=== PATIENT | female | born 1975 | race African-American/Black ===

== ENCOUNTER 2016-11-12 05:55 | Emergency (ER) | payer BC, OTHER ==
[~2016-11-12] VITALS: Ht 162.6 cm; Wt 91.4 kg
[~2016-11-12 05:55] MED LIST: EPIP0.3I IM; ERGO50000 PO; LISI-372 PO; VERA120T3 PO; VIST50CA PO
[2016-11-12 06:14] VITALS: BP 146/92; PULSE 82; RESP 18; TEMP 97.9; O2SAT 99
[2016-11-12 06:27] VITALS: BP 146/92; PULSE 82; RESP 18; TEMP 97.9; O2SAT 99
[2016-11-12] MEDS ORDERED: LISI20TA3 PO (06:37)
[2016-11-12] MEDS ORDERED: SODIUM CHLORIDE 0.9% FLUSH 10 ML FLUSH IVF PRN (06:45)
[2016-11-12 06:55] LABS: BLOOD, URINE LARGE (NEG); GLUCOSE,URINE NEG (NEG); KETONE, URINE NEG (NEG); METHOD OF COLLECTION CLEAN CATCH; NITRITE,URINE NEG (NEG); PH, URINE 5.5 (5.0-8.5); URINE COLOR YELLOW (YELLW/STRAW)
--- NOTE | 2016-11-12 06:59 | PD ---
HPI Chief Complaint: Abdominal Pain Time Seen by Provider: 06:43 Travel History International Travel<30 days: No Contact w/Intl Traveler<30days: No Traveled to known affect area: No History of Present Illness HPI The patient is a 41-year-old G3, P3, A0 female who complains of midline suprapubic abdominal pain and vaginal discharge for the past 2 days. She denies a malodorous discharge. She denies any fever but does have some nausea and vomiting. She states there is no possibility of she has had a tubal ligation. She is sexually active without protection. She is afraid that her partner may have given her an STD. She denies any dysuria, frequency or urgency. PFSH Past Medical History Hx Anticoagulant Therapy: No Anemia: Yes Blood Disorders: No Anxiety: Yes Depression: No Heart Rhythm Problems: No Cancer: No Cardiovascular Problems: Yes High Cholesterol: Yes Chest Pain: Yes (STRESSTEST 2012: NEGATIVE) Congestive Heart Failure: No Diabetes: No Diminished Hearing: No Endocrine: No Gastrointestinal Disorders: Yes Genitourinary: Yes Hepatitis: No Hiatal Hernia: No Hypertension: Yes Immune Disorder: No Kidney Stones: Yes Musculoskeletal: Yes Neurologic: Yes Psychiatric: Yes Reproductive: Yes (VAGINAL BLEEDING HX ENDOMETRIOSIS) Respiratory: No Immunizations Current: Yes Migraines: Yes Thyroid Disease: No Tetanus Vaccination: < 5 Years Influenza Vaccination: Yes PNEUMOCCOCAL Vaccine (Year): 2 ?: Not LMP: 1.5 WEEKS AGO : 3 Para: 3 Miscarriage: 0 : 0 Ovarian Cysts: Yes () Tubal Ligation: Yes Past Surgical History Abdominal Surgery: No AICD: No Body Medical Devices: NONE Cardiac Surgery: No Ear Surgery: No Endocrine Surgery: No Eye Surgery: No Genitourinary Surgery: No Gynecologic Surgery: Yes (TUBAL LIGATION, UTERINE ABLATION) Joint Replacement: No Neurologic Surgery: No Oral Surgery: No Pacemaker: No Thoracic Surgery: No Other Surgery: Yes (RIGHT WRIST SX) Family History Family Hypercholesterolemia: Yes (MOTHER) Social History Alcohol Use: Yes (OCCASIONALLY) Tobacco Use: No Substance Use: No Allergies-Medications (Allergen,Severity, Reaction): Coded Allergies: Tetanus Toxoid (Verified Allergy, Severe, Swelling, 11/12/16) ITCHING Pineapple (Verified Allergy, Intermediate, Itching, 11/12/16) Doxycycline (Verified Adverse Reaction, Mild, SICK TO STOMACH, 11/12/16) Reported Meds & Prescriptions Reported Meds & Active Scripts Active Reported Lisinopril-Hctz 20-25 Mg Tab 1 Tab PO DAILY Review of Systems Except as stated in HPI: all other systems reviewed are Neg Physical Exam Narrative GENERAL: The patient is obese, alert, oriented 3 and slight apparent distress with her midline suprapubic discomfort. Her vital signs show blood pressure 146 /92 but are otherwise normal. SKIN: Focused skin assessment warm/dry. HEAD: Atraumatic. Normocephalic. EYES: Pupils equal and round. No scleral icterus. No injection or drainage. ENT: No nasal bleeding or discharge. Mucous membranes pink and moist. NECK: Trachea midline. No JVD. CARDIOVASCULAR: Regular rate and rhythm. No murmur appreciated. RESPIRATORY: No accessory muscle use. Clear to auscultation. Breath sounds equal bilaterally. GASTROINTESTINAL: Abdomen soft, with tenderness to direct palpation in the midline suprapubic area, nondistended. Hepatic and splenic margins not palpable. No guarding or rebound is present. MUSCULOSKELETAL: No obvious deformities. No clubbing. No cyanosis. No edema. NEUROLOGICAL: Awake and alert. No obvious cranial nerve deficits. Motor grossly within normal limits. Normal speech. PSYCHIATRIC: Appropriate mood and affect; insight and judgment normal. GENITOURINARY: Normal external genitalia without lesions or erythema. Vaginal vault without blood but there is a white, foamy, [id number] drainage. Cervical os was closed with clear drainage. No cervical motion tenderness. Uterus nontender and nonenlarged. Bilateral adnexa nontender without masses. Data Data Last Documented VS Vital Signs Date Time Temp Pulse Resp B/P Pulse Ox O2 Delivery O2 Flow Rate FiO2 11/12/16 06:27 97.9 82 18 146/92 99 Orders Complete Blood Count With Diff (11/12/16 06:43) Basic Metabolic Panel (Bmp) (11/12/16 06:43) Gc And Chlamydia Pcr (11/12/16 06:43) Wet Prep Profile (11/12/16 06:43) Urinalysis - C+S If Indicated (11/12/16 06:43) Sodium Chloride 0.9% Flush (Ns Flush) (11/12/16 06:45) MDM Medical Decision Making Medical Screen Exam Complete: Yes Emergency Medical Condition: Yes Medical Record Reviewed: Yes Differential Diagnosis Trichomonas vaginitis, monilial vaginitis, bacterial vaginosis, gonorrhea/ chlamydia, cystitis, pyelonephritisunlikely, anemia, electrolyte disorder Narrative Course It is now 0700 and the patient is transferred to Dr. Hall. Man Virgen MD Nov 12, 2016 06:59
[2016-11-12 07:06] LABS: BACTERIA, URINE MOD /hpf; CULTURE IF INDICATED CULTURE INDICATED; WBC, URINE 100-200 /hpf (0-5)
[2016-11-12 07:07] LABS: COMMENT (UR) CULTURE INDICATED; SQUAMOUS EPITHELIAL CELL URINE > 8 /hpf (0-5)
[2016-11-12 07:10] LABS: BASOPHIL % 0.7 % (0.0-2.0); EOSINOPHIL # 0.2 TH/MM3 (0-0.4); EOSINOPHIL % 3.2 % (0.0-4.0); HEMATOCRIT 35.9 % (35.0-46.0); HEMO FLAGS DIFF FINAL; LYMPH % 31.8 % (9.0-44.0); LYMPHOCYTE # 2.3 TH/MM3 (1.0-4.8); MEAN CELL VOLUME 80.6 FL (80.0-100.0); MEAN CORPUSCULAR HEMOGLOBIN 27.4 PG (27.0-34.0); NEUT % 56.3 % (16.0-70.0); PLATELET COUNT 355 TH/MM3 (150-450); RED BLOOD COUNT 4.46 MIL/MM3 (4.00-5.30); RED CELL DISTRIBUTION WIDTH 12.7 % (11.6-17.2); WHITE BLOOD COUNT 7.1 TH/MM3 (4.0-11.0)
[2016-11-12 07:18] LABS: POTASSIUM 3.7 MEQ/L (3.5-5.1)
[2016-11-12 07:21] LABS: BICARBONATE 29.5 MEQ/L (21.0-32.0)
[2016-11-12] MEDS ORDERED: AZITHROMYCIN PWD FOR SUSP 1 GM PACKET PO ONE (07:45)
[2016-11-12] MEDS ORDERED: LIDOCAINE HCL 1% 50 ML VIAL IM ONE (07:45)
[2016-11-12] MEDS ORDERED: cefTRIAXone 250 MG VIAL IM ONE (07:45)
[2016-11-12] MEDS ORDERED: metroNIDAZOLE 500 MG TAB PO ONE (07:45)
[2016-11-12] MEDS ORDERED: MACR100C2 PO (07:48)
[2016-11-12] MEDS ORDERED: METR-1 PO (07:48)
--- NOTE | 2016-11-12 07:49 | PD ---
Physical Exam Date Seen by Provider: Nov 12, 2016 Time Seen by Provider: 07:00 Narrative Patient signed out to me at [address] Virgen, presenting with vaginal discharge, pelvic exam shows discharge with no significant signs of CMT. Cultures pending. Lab work initially indicates UTI with wet prep positive for clue cells and Trichomonas. GC pending. At this point, I have talked to the patient regarding her findings and she admits that she has a new sexual partner, unprotected. And at this point, my plan would be to prophylactically treat her for GC as well considering the results are still pending. We will treat her for Trichomonas and BV. She will also be given antibiotics for UTI. My plan would be to release her with follow-up to [facility] as needed. Return for any worsening in discomfort, or new symptoms as needed. The plan has been discussed with the patient and she states understanding. Data Data Last Documented VS Vital Signs Date Time Temp Pulse Resp B/P Pulse Ox O2 Delivery O2 Flow Rate FiO2 11/12/16 06:27 97.9 82 18 146/92 99 Orders Complete Blood Count With Diff (11/12/16 06:43) Basic Metabolic Panel (Bmp) (11/12/16 06:43) Gc And Chlamydia Pcr (11/12/16 06:43) Wet Prep Profile (11/12/16 06:43) Urinalysis - C+S If Indicated (11/12/16 06:43) Sodium Chloride 0.9% Flush (Ns Flush) (11/12/16 06:45) Urine Culture (11/12/16 06:40) Ed Urine Pregnancytest Poc (11/12/16 07:09) Metronidazole (Flagyl) (11/12/16 07:45) Rocephin 250mg Vial Im X 1 (11/12/16 07:45) Lidocaine 1% Inj (50 Ml) (Xylocaine 1% I (11/12/16 07:45) Azithromycin Powd Pack (Zithromax Powd P (11/12/16 07:45) MDM Medical Record Reviewed: Yes Supervised Visit with HEBERT: No Diagnosis Primary Impression: Trichomonas vaginitis Additional Impression: UTI (urinary tract infection) Med/Other Pt SpecificInfo: Prescription(s) given Scripts Nitrofurantoin Monohydrate Macrocrystals (Macrobid)100 Mg [id number] Mg PO BID 7 Days Ref 0 Prov:Justin Sheth MD 11/12/16 Metronidazole (Flagyl)500 Mg [id number] Mg PO BID 7 Days Ref 0 Prov:Justin Sheth MD 11/12/16 Disposition: 01 DISCHARGE HOME Condition: Stable Justin Sheth MD Nov 12, 2016 07:48
[2016-11-12 13:07] LABS: CHLAMYDIA PCR NOT DETECTED (NOT DETECT); NEISSERIA PCR NOT DETECTED (NOT DETECT)
== END 2016-11-12 08:23 | disposition home or self-care (01) ==
LOC: PHED 05:55
DX: A59.9 Trichomoniasis, unspecified (principal); N39.0 Urinary tract infection, site not specified; B96.20 Unspecified Escherichia coli [E. coli] as the cause of diseases classified elsewhere; I10 Essential (primary) hypertension; E78.00 Pure hypercholesterolemia, unspecified; D64.9 Anemia, unspecified; Z87.442 Personal history of urinary calculi
CPT/HCPCS: 80048; 81001; 84703; 85025; 87077; 87086; 87186; 87210; 87491; 87591; 96372; 99284; J0696

== ENCOUNTER 2017-03-22 01:06 | Emergency (ER) | payer BC ==
[~2017-03-22] VITALS: Ht 162.6 cm; Wt 92.0 kg
[~2017-03-22 01:06] MED LIST changes: -EPIP0.3I IM; -ERGO50000 PO; -LISI-372 PO; +LISI20TA3 PO; +MACR100C2 PO; +METR-1 PO; -VERA120T3 PO; -VIST50CA PO
[2017-03-22 01:32] VITALS: BP 137/95; PULSE 65; RESP 18; TEMP 98.3; O2SAT 100
--- NOTE | 2017-03-22 12:35 | EKG ---
Date Performed: 03/22/2017 Time Performed: 01:19:26 PTAGE: 41 years EKG: Sinus rhythm LEFT AXIS DEVIATION POSSIBLE RIGHT VENTRICULAR CONDUCTION DELAY ABNORMAL ECG PREVIOUS TRACING : 01/30/2016 07.44 No significant change from previous tracing noted. DOCTOR: Mason Merchant Interpretating Date/Time 03/22/2017 12:34:33
--- NOTE | 2017-03-22 12:38 | EKG ---
Date Performed: 03/22/2017 Time Performed: 02:31:11 PTAGE: 41 years EKG: Sinus rhythm NORMAL ECG PREVIOUS TRACING : 03/22/2017 01.19 No significant change from previous tracing noted. DOCTOR: Mason Merchant Interpretating Date/Time 03/22/2017 12:36:53
== END 2017-03-22 03:17 | disposition left against medical advice (07) ==
LOC: PHED 01:06
DX: R07.9 Chest pain, unspecified (principal)
CPT/HCPCS: 93005; 99281

== ENCOUNTER 2017-03-27 23:00 | Emergency (ER) | payer BC ==
[~2017-03-27] VITALS: Ht 162.6 cm; Wt 93.8 kg
[2017-03-27 23:26] VITALS: BP 160/89; PULSE 83; RESP 12; TEMP 98.8; O2SAT 100
--- NOTE | 2017-03-27 23:50 | PD ---
HPI Chief Complaint: Injury Time Seen by Provider: 23:47 Travel History International Travel<30 days: No Contact w/Intl Traveler<30days: No Traveled to known affect area: No History of Present Illness HPI The patient is a right-hand dominant 41-year-old female who is dressed caught in the bottom of her recliner and she fell forward injuring her left knee and left hand. She denies any other injury. She complains of pain and the left fourth finger and left medial knee. She states there is no possibility of . PFSH Past Medical History Hx Anticoagulant Therapy: No Anemia: Yes Blood Disorders: No Anxiety: Yes Depression: No Heart Rhythm Problems: No Cancer: No Cardiovascular Problems: Yes High Cholesterol: Yes Chest Pain: Yes (STRESSTEST 2012: NEGATIVE) Congestive Heart Failure: No Diabetes: No Diminished Hearing: No Endocrine: No Gastrointestinal Disorders: Yes Genitourinary: Yes Hepatitis: No Hiatal Hernia: No Hypertension: Yes Immune Disorder: No Kidney Stones: Yes Musculoskeletal: Yes Neurologic: Yes Psychiatric: Yes Respiratory: No Immunizations Current: Yes Migraines: Yes Thyroid Disease: No Influenza Vaccination: Yes PNEUMOCCOCAL Vaccine (Year): 2 ?: Not LMP: ABLATION 2013 : 3 Para: 3 Miscarriage: 0 : 0 Ovarian Cysts: Yes () Tubal Ligation: Yes Past Surgical History Abdominal Surgery: No AICD: No Body Medical Devices: NONE Cardiac Surgery: No Ear Surgery: No Endocrine Surgery: No Eye Surgery: No Genitourinary Surgery: No Gynecologic Surgery: Yes (TUBAL LIGATION, UTERINE ABLATION) Joint Replacement: No Neurologic Surgery: No Oral Surgery: No Pacemaker: No Thoracic Surgery: No Other Surgery: Yes (RIGHT WRIST SX) Family History Family Hypercholesterolemia: Yes (MOTHER) Social History Alcohol Use: Yes (OCCASIONALLY) Tobacco Use: No Substance Use: No Allergies-Medications (Allergen,Severity, Reaction): Coded Allergies: tetanus toxoid, adsorbed (Unverified Allergy, Severe, Swelling, 03/27/17) ITCHING pineapple (Unverified Allergy, Intermediate, Itching, 03/27/17) doxycycline (Unverified Adverse Reaction, Mild, SICK TO STOMACH, 03/27/17) Reported Meds & Prescriptions Reported Meds & Active Scripts Active Reported Lisinopril-Hctz 20-25 Mg Tab 1 Tab PO DAILY Review of Systems Except as stated in HPI: all other systems reviewed are Neg Physical Exam Narrative GENERAL: The patient is alert, oriented 3, obese and moderate apparent distress with her left knee pain and left fourth finger pain. Her vital signs show blood pressure 160/89 but otherwise normal SKIN: Focused skin assessment warm/dry. There is a contusion and swelling over the PIP joint of the left fourth finger and left medial knee. No bony deformity is noted. HEAD: Atraumatic. Normocephalic. EYES: Pupils equal and round. No scleral icterus. No injection or drainage. ENT: No nasal bleeding or discharge. Mucous membranes pink and moist. NECK: Trachea midline. No JVD. CARDIOVASCULAR: Regular rate and rhythm. No murmur appreciated. RESPIRATORY: No accessory muscle use. Clear to auscultation. Breath sounds equal bilaterally. GASTROINTESTINAL: Abdomen soft, non-tender, nondistended. Hepatic and splenic margins not palpable. MUSCULOSKELETAL: No obvious deformities. No clubbing. No cyanosis. No edema. Neurovascular is intact distally on the left fourth finger as well as left foot. NEUROLOGICAL: Awake and alert. No obvious cranial nerve deficits. Motor grossly within normal limits. Normal speech. PSYCHIATRIC: Appropriate mood and affect; insight and judgment normal. Data Data Last Documented VS Vital Signs Date Time Temp Pulse Resp B/P (MAP) Pulse Ox O2 Delivery O2 Flow Rate FiO2 03/28/17 01:26 73 14 145/89 (107) 100 Room Air 03/27/17 23:26 98.8 Orders Orders Finger ([id number]) (03/27/17 23:50) Knee, Complete (4vws) (03/27/17 23:50) [facility] Medical Decision Making Medical Screen Exam Complete: Yes Emergency Medical Condition: Yes Medical Record Reviewed: Yes Interpretation(s) X-rays of the left third digit are unremarkable and x-rays of the left knee show no fracture except a small bone fragment near the origin of the patellar tendon which is likely chronic. The strep screen is negative for group A strep antigen. Differential Diagnosis Croup, viral pharyngitis, strep pharyngitis, pneumonia, asthma, bronchiolitis Narrative Course The patient has contusions of the left knee and left third finger. She is given a work excuse for 3 days. Follow-up with her primary care physician this week. Diagnosis Primary Impression: Multiple contusions Additional Instructions: Follow-up with your primary care physician this week. There are no fractures, you have bruises of your left knee and left third finger. Take the 600 mg Motrin regularly to develop high anti-inflammatory levels. This often works best for the pain. Disposition: 01 DISCHARGE HOME Condition: Stable Man Virgen MD Mar 27, 2017 23:50
[2017-03-28 01:26] VITALS: BP 145/89; PULSE 73; RESP 14; O2SAT 100
--- NOTE | 2017-03-28 01:34 | RADRPT ---
EXAM DATE/TIME: 03/28/2017 01:09 [facility] COMPARISON: No previous studies available for comparison. INDICATIONS : Fall. Pain in left knee, anterior distal patella. MEDICAL HISTORY : None. SURGICAL HISTORY : None. ENCOUNTER: Initial ACUITY: 1 day PAIN SCORE: 6/10 LOCATION: Left knee FINDINGS: Four view examination of the left knee demonstrates no evidence of fracture or dislocation. Bony min eralization is normal. The articular surfaces are intact. The suprapatellar soft tissues have a nor mal configuration. CONCLUSION: Unremarkable examination of the left knee. There is a small bone fragment near the origin of the pat ellar tendon I suspect is chronic Abiel Canela MD on March 28, 2017 at 1:32 Board Certified Radiologist. This report was verified electronically.
--- NOTE | 2017-03-28 01:35 | RADRPT ---
EXAM DATE/TIME: 03/28/2017 01:16 [facility] COMPARISON: No previous studies available for comparison. INDICATIONS : Fall. Pain in third digit. MEDICAL HISTORY : None. SURGICAL HISTORY : None. ENCOUNTER: Initial ACUITY: 1 day PAIN SCORE: 8/10 LOCATION: Left upper extremity third digit FINDINGS: Examination of the third digit of the left hand demonstrates no evidence of fracture or dislocation. No radiopaque foreign bodies are seen. The soft tissues are intact. CONCLUSION: Unremarkable examination of the left third finger. Abiel Canela MD on March 28, 2017 at 1:33 Board Certified Radiologist. This report was verified electronically.
== END 2017-03-28 02:02 | disposition home or self-care (01) ==
LOC: PHED 23:00
DX: S80.02XA Contusion of left knee, initial encounter (principal); S60.032A Contusion of left middle finger without damage to nail, initial encounter; W19.XXXA Unspecified fall, initial encounter
CPT/HCPCS: 73140; 73564; 99284

== ENCOUNTER 2017-05-11 18:24 | Emergency (ER) | payer BC ==
[~2017-05-11] VITALS: Ht 162.6 cm; Wt 93.6 kg
[~2017-05-11 18:24] MED LIST changes: -MACR100C2 PO; -METR-1 PO
[2017-05-11 18:50] VITALS: BP 181/97; PULSE 73; RESP 16; TEMP 98.6; O2SAT 100
[2017-05-11] MEDS ORDERED: LEVO25TA4 PO (19:01)
[2017-05-11] MEDS ORDERED: IBUPROFEN 600 MG TAB PO ONE (19:15)
--- NOTE | 2017-05-11 19:34 | RADRPT ---
EXAM DATE/TIME: 05/11/2017 19:18 [facility] COMPARISON: No previous studies available for comparison. INDICATIONS : Left foot pain and swelling since twisting it today. MEDICAL HISTORY : None. SURGICAL HISTORY : None. ENCOUNTER: Initial ACUITY: 1 day PAIN SCORE: 4/10 LOCATION: Left foot. FINDINGS: Three view examination of the left foot demonstrates no dislocation, or fracture. There is nonspecifi c soft tissue swelling around the foot. The tarsal bones appear intact. The interphalangeal and met atarsophalangeal joints are intact. The calcaneus is intact. Bony mineralization is normal. CONCLUSION: Nonspecific soft tissue swelling. Jesse Lopez MD on May 11, 2017 at 19:32 Board Certified Radiologist. This report was verified electronically.
--- NOTE | 2017-05-11 19:44 | PD ---
HPI . Left foot pain Chief Complaint: Musculoskeletal Complaint Time Seen by Provider: 19:00 Travel History International Travel<30 days: No Contact w/Intl Traveler<30days: No Traveled to known affect area: No History of Present Illness HPI 42-year-old female presents emergency department for evaluation of left foot pain that occurred earlier today when she hit her foot on elevation of the ground at a store when walking. Patient is ambulatory with a limp. Patient has full range of motion of the foot. The foot is neurovascularly intact. Patient has good capillary refill. There is mild edema noted. No erythema, ecchymosis or cyanosis. No obvious deformity. Patient states her only major medical history is hypertension and she takes lisinopril daily for it. He shouldn't denies falling or hitting her head when she stubbed her foot. PFSH Past Medical History Hx Anticoagulant Therapy: No Anemia: Yes Blood Disorders: No Anxiety: Yes Depression: No Heart Rhythm Problems: No Cancer: No Cardiovascular Problems: Yes High Cholesterol: Yes Chest Pain: Yes (STRESSTEST 2012: NEGATIVE) Congestive Heart Failure: No Diabetes: No Diminished Hearing: No Endocrine: No Gastrointestinal Disorders: Yes Genitourinary: Yes Hepatitis: No Hiatal Hernia: No Heparin Induced Thrombocytopen: No Hypertension: Yes Immune Disorder: No Implanted Vascular Access Dvce: No Kidney Stones: Yes Medical other: No Musculoskeletal: Yes Neurologic: Yes Psychiatric: Yes Respiratory: No Immunizations Current: Yes Migraines: Yes Thyroid Disease: No PNEUMOCCOCAL Vaccine (Year): 2 ?: Not : 3 Para: 3 Miscarriage: 0 : 0 Ovarian Cysts: Yes () Tubal Ligation: Yes Past Surgical History Abdominal Surgery: No AICD: No Body Medical Devices: NONE Cardiac Surgery: No Ear Surgery: No Endocrine Surgery: No Eye Surgery: No Genitourinary Surgery: No Gynecologic Surgery: Yes (TUBAL LIGATION, UTERINE ABLATION) Joint Replacement: No Neurologic Surgery: No Oral Surgery: No Pacemaker: No Thoracic Surgery: No Other Surgery: Yes (RIGHT WRIST SX) Family History Family Myocardial Infarction: No Family Hypercholesterolemia: Yes (MOTHER) Social History Alcohol Use: Yes (OCCASIONALLY) Tobacco Use: No Substance Use: No Allergies-Medications (Allergen,Severity, Reaction): Coded Allergies: tetanus toxoid, adsorbed (Unverified Allergy, Severe, Swelling, 05/11/17) ITCHING pineapple (Unverified Allergy, Intermediate, Itching, 05/11/17) doxycycline (Unverified Adverse Reaction, Mild, SICK TO STOMACH, 05/11/17) Reported Meds & Prescriptions Reported Meds & Active Scripts Active Reported Levothyroxine (Levothyroxine Sodium) 25 Mcg Tab 25 Mcg PO DAILY Lisinopril-Hctz 20-25 Mg Tab 1 Tab PO DAILY Review of Systems Except as stated in HPI: all other systems reviewed are Neg Physical Exam Narrative GENERAL: Well-nourished, well-developed 42-year-old female patient in no acute distress. SKIN: Focused skin assessment warm/dry. HEAD: Normocephalic. Atraumatic EYES: No scleral icterus. No injection or drainage. NECK: Supple, trachea midline. No JVD or lymphadenopathy. CARDIOVASCULAR: Regular rate and rhythm without murmurs, gallops, or rubs. RESPIRATORY: Breath sounds equal bilaterally. No accessory muscle use. GASTROINTESTINAL: Abdomen soft, non-tender, nondistended. MUSCULOSKELETAL: Mild edema to left lateral aspect of foot ranging from 5th phalanges to lateral malleolus. No cyanosis, ecchymosis or erythema. BACK: Nontender without obvious deformity. No CVA tenderness. Data Data Last Documented VS Vital Signs Date Time Temp Pulse Resp B/P (MAP) Pulse Ox O2 Delivery O2 Flow Rate FiO2 05/11/17 18:50 98.6 73 16 181/97 (125) 100 Orders Orders Foot, Complete ([id number]) (05/11/17 19:07) Ice/Cold Pack (05/11/17 19:07) Ibuprofen (Motrin) (05/11/17 19:15) MDM Medical Decision Making Medical Screen Exam Complete: Yes Emergency Medical Condition: Yes Differential Diagnosis Ventral diagnoses include but not limited to foot contusion, foot fracture, ankle sprain Narrative Course 42-year-old female presents emergency department for evaluation of left foot pain that occurred when she stubbed it at a store on an elevation of the ground. Patient denies any other physiological complaint this time. There is mild edema noted to the left lateral aspect of the foot ranging from the fifth phalanges to the lateral malleolus. Patient was given ice pack to the left foot and Motrin for pain and swelling. X-ray of the left foot was ordered and shows no acute fracture or dislocation. Based on patient's symptoms, clinical presentation,, radiological results, vital sign review and physical exam it is not necessary to admit the patient to the hospital or keep the patient in the emergency department for further evaluation. Left foot will be Iggy wrapped and Patient will be discharged home with instructions to use [id number] Motrin and ice for pain and swelling and to follow-up with her primary care. Diagnosis Primary Impression: Contusion, foot Qualified Codes: S90.32XA - Contusion of left foot, initial encounter Patient Instructions: Foot Contusion (ED), General Instructions Additional Instructions: Please return to emergency department if your symptoms return or worsen. Follow up with your primary care provider. May use [id number] Motrin and ice packs for pain and swelling. Elevate foot when resting. Disposition: 01 DISCHARGE HOME Condition: Stable Jodi Victoria May 11, 2017 19:44
== END 2017-05-11 20:03 | disposition home or self-care (01) ==
LOC: PHEFT 18:24
DX: S90.32XA Contusion of left foot, initial encounter (principal); W22.8XXA Striking against or struck by other objects, initial encounter; E78.5 Hyperlipidemia, unspecified; F41.9 Anxiety disorder, unspecified
CPT/HCPCS: 73630; 99283

== ENCOUNTER 2017-05-14 13:23 | Emergency (ER) | payer BC ==
[~2017-05-14] VITALS: Ht 162.6 cm; Wt 92.1 kg
[~2017-05-14 13:23] MED LIST changes: +LEVO25TA4 PO
[2017-05-14 13:29] VITALS: BP 140/90; PULSE 84; RESP 16; TEMP 99.1; O2SAT 100
--- NOTE | 2017-05-14 14:01 | PD ---
HPI Chief Complaint: Injury Time Seen by Provider: 13:36 Travel History International Travel<30 days: No Contact w/Intl Traveler<30days: No Traveled to known affect area: No History of Present Illness HPI Patient presents to the ED for left foot trauma and pain. The patient states 3 days ago she struck an electrical box on the floor with her left foot. She came to the ED after the event and original film showed no fractures or effusion. She had the ankle wrapped, elevated, iced, and was taking Ibuprofen. She has come back to the ED because of pain and inability to bare weight at moments. She denies fever, SOB, chest pain, n/v. PFSH Past Medical History Hx Anticoagulant Therapy: No Anemia: Yes Blood Disorders: No Anxiety: Yes Depression: No Heart Rhythm Problems: No Cancer: No Cardiovascular Problems: Yes High Cholesterol: Yes Chest Pain: Yes (STRESSTEST 2012: NEGATIVE) Congestive Heart Failure: No Diabetes: No Diminished Hearing: No Endocrine: No Gastrointestinal Disorders: Yes Genitourinary: Yes Hepatitis: No Hiatal Hernia: No Heparin Induced Thrombocytopen: No Hypertension: Yes Immune Disorder: No Implanted Vascular Access Dvce: No Kidney Stones: Yes Musculoskeletal: Yes Neurologic: Yes Psychiatric: Yes Respiratory: No Immunizations Current: Yes Migraines: Yes Thyroid Disease: No PNEUMOCCOCAL Vaccine (Year): 2 ?: Not LMP: 04/22/17 : 3 Para: 3 Miscarriage: 0 : 0 Ovarian Cysts: Yes () Tubal Ligation: Yes Past Surgical History Abdominal Surgery: No AICD: No Body Medical Devices: NONE Cardiac Surgery: No Ear Surgery: No Endocrine Surgery: No Eye Surgery: No Genitourinary Surgery: No Gynecologic Surgery: Yes (TUBAL LIGATION, UTERINE ABLATION) Joint Replacement: No Neurologic Surgery: No Oral Surgery: No Pacemaker: No Thoracic Surgery: No Other Surgery: Yes (RIGHT WRIST SX) Family History Family Hypercholesterolemia: Yes (MOTHER) Social History Alcohol Use: Yes (OCCASIONALLY) Tobacco Use: No Substance Use: No Allergies-Medications (Allergen,Severity, Reaction): Coded Allergies: tetanus toxoid, adsorbed (Unverified Allergy, Severe, Swelling, 05/14/17) ITCHING pineapple (Unverified Allergy, Intermediate, Itching, 05/14/17) doxycycline (Unverified Adverse Reaction, Mild, SICK TO STOMACH, 05/14/17) Reported Meds & Prescriptions Reported Meds & Active Scripts Active Reported Lisinopril-Hctz 20-25 Mg Tab 1 Tab PO DAILY Review of Systems General / Constitutional: No: Fever Physical Exam Narrative GENERAL: 42 yo F, NAD SKIN: Warm and dry. RESPIRATORY: No accessory muscle use. Clear to auscultation. Breath sounds equal bilaterally. GASTROINTESTINAL: Abdomen soft, non-tender, nondistended. Hepatic and splenic margins not palpable. MUSCULOSKELETAL: Left dorsal of ankle has mild edema. Tender to palpation. No warmth on palpation. Data Data Last Documented VS Vital Signs Date Time Temp Pulse Resp B/P (MAP) Pulse Ox O2 Delivery O2 Flow Rate FiO2 05/14/17 13:29 99.1 84 16 140/90 (107) 100 vs reviewed Orders Orders Tibia/Fibula (Ap/Lat) (05/14/17 13:55) Splint Or Brace Apply/Monitor (05/14/17 13:55) Foot, Complete ([id number]) (05/14/17 14:15) [facility] Medical Decision Making Medical Screen Exam Complete: Yes Emergency Medical Condition: Yes Differential Diagnosis fracture, contusion, chronic pain Narrative Course Last 24 hours Impressions Foot X-Ray 05/14/17 1415 Signed Impressions: Service Date/Time: Sunday, May 14, 2017 14:17 - CONCLUSION: 1. There is no evidence of acute fracture. Ronnie Aleman MD Tibia/Fibula X-Ray 05/14/17 1355 Signed Impressions: Service Date/Time: Sunday, May 14, 2017 14:04 - CONCLUSION: Unremarkable examination of the left tibia. Juan Finley Jr., MD post op boot SEDALIA therapy follow up with pmd Diagnosis Primary Impression: Foot injury Qualified Codes: S99.922D - Unspecified injury of left foot, subsequent encounter Referrals: Osvaldo Mackey DPM 2 days Additional Instructions: You have a choice when it comes to health care, and we are glad that you chose [facility]. Hopefully, we have met your expectations on today's visit. You are welcome to return to [facility] at any time, as we are committed to meeting the health care needs of our community. Med/Other Pt SpecificInfo: No Change to Meds Disposition: 01 DISCHARGE HOME Condition: Stable Dilan Baptiste MD May 14, 2017 14:01
--- NOTE | 2017-05-14 15:15 | RADRPT ---
EXAM DATE/TIME: 05/14/2017 14:17 [facility] COMPARISON: FOOT LEFT COMPLETE ([id number]), May 11, 2017, 19:18. INDICATIONS : Left foot pain after kicking a piece of metal. MEDICAL HISTORY : None. SURGICAL HISTORY : None. ENCOUNTER: [facility] ACUITY: 3 days PAIN SCORE: 8/10 LOCATION: Left lateral foot FINDINGS: Soft tissue swelling is present laterally. There is no evidence of acute fracture. Bony mineralizatio n is normal. Joint spaces are maintained. CONCLUSION: 1. There is no evidence of acute fracture. Ronnie Aleman MD on May 14, 2017 at 14:53 Board Certified Radiologist. This report was verified electronically.
--- NOTE | 2017-05-14 15:32 | RADRPT ---
EXAM DATE/TIME: 05/14/2017 14:04 [facility] COMPARISON: No previous studies available for comparison. INDICATIONS : Left lower leg pain after kicking piece of metal MEDICAL HISTORY : None. SURGICAL HISTORY : None. ENCOUNTER: [facility] ACUITY: 3 days PAIN SCORE: 8/10 LOCATION: Left lateral lower leg FINDINGS: Two view examination of the left tibia demonstrates no evidence of fracture or dislocation. Bony min eralization is normal. The soft tissue structures are intact. CONCLUSION: Unremarkable examination of the left tibia. Juan Finley Jr., MD on May 14, 2017 at 15:30 Board Certified Radiologist. This report was verified electronically.
== END 2017-05-14 16:03 | disposition home or self-care (01) ==
LOC: PHEFT 13:23
DX: S99.922D Unspecified injury of left foot, subsequent encounter (principal); D64.9 Anemia, unspecified; I10 Essential (primary) hypertension; W22.8XXA Striking against or struck by other objects, initial encounter; Y93.01 Activity, walking, marching and hiking
CPT/HCPCS: 73590; 73630; 99283; L3260

== ENCOUNTER 2017-09-08 20:44 | Observation (INO) | payer BC ==
[~2017-09-08] VITALS: Ht 162.6 cm; Wt 92.0 kg
[~2017-09-08 20:44] MED LIST changes: -LEVO25TA4 PO
[2017-09-08 20:49] VITALS: BP 140/85; PULSE 93; RESP 16; TEMP 98.1; O2SAT 100
[2017-09-08] MEDS ORDERED: SODIUM CHLORIDE 0.9% FLUSH 10 ML FLUSH IVF PRN (21:15)
[2017-09-08] MEDS ORDERED: PROMETHAZINE INJ 25 MG/ML VIAL IM ONE (21:15)
[2017-09-08] MEDS ORDERED: MORPHINE SULFATE 2 MG/ML INJ IM ONE (21:15)
--- NOTE | 2017-09-08 21:19 | PD ---
HPI Chief Complaint: Cardiac Complaint Time Seen by Provider: 20:52 Travel History International Travel<30 days: No Contact w/Intl Traveler<30days: No Traveled to known affect area: No History of Present Illness HPI 42-year-old female with a history of hypertension presents to emergency department complaining of chest pain via evac that started approximately one half hours ago. States that she was sitting when the pain started. According to EVAC, she was given nitro 3, zofran, and 4 baby aspirin. States this seemed to relieve her pain to a 7 out of 10 and she still feels mildly nauseous. States her chest pain was in the midsternal region radiating to the left chest associated with shortness of breath, nausea. No palliative or provocative factors. Currently she says her pain is 7 out of 10 and she has a mild headache. Says a similar incident occurred approximately 1 year ago but she had a stress test which was normal per patient. Patient does not follow cardiology. Patient denies history of cardiopulmonary issues. Denies history of diabetes. PFSH Past Medical History Hx Anticoagulant Therapy: No Anemia: Yes Blood Disorders: No Anxiety: Yes Depression: No Heart Rhythm Problems: No Cancer: No Cardiovascular Problems: Yes High Cholesterol: Yes Chest Pain: Yes (STRESSTEST 2012: NEGATIVE) Congestive Heart Failure: No Diabetes: No Diminished Hearing: No Endocrine: No Gastrointestinal Disorders: Yes Genitourinary: Yes Hepatitis: No Hiatal Hernia: No Heparin Induced Thrombocytopen: No Hypertension: Yes Immune Disorder: No Implanted Vascular Access Dvce: No Kidney Stones: Yes Musculoskeletal: Yes Neurologic: Yes Psychiatric: Yes Respiratory: No Immunizations Current: Yes Migraines: Yes Thyroid Disease: No Tetanus Vaccination: < 5 Years Influenza Vaccination: Yes PNEUMOCCOCAL Vaccine (Year): 2 ?: Not LMP: ENDED TODAY : 3 Para: 3 Miscarriage: 0 : 0 Ovarian Cysts: Yes () Tubal Ligation: Yes Past Surgical History Abdominal Surgery: No AICD: No Body Medical Devices: NONE Cardiac Surgery: No Ear Surgery: No Endocrine Surgery: No Eye Surgery: No Genitourinary Surgery: No Gynecologic Surgery: Yes (TUBAL LIGATION, UTERINE ABLATION) Joint Replacement: No Neurologic Surgery: No Oral Surgery: No Pacemaker: No Thoracic Surgery: No Other Surgery: Yes (RIGHT WRIST SX) Family History Family Hypercholesterolemia: Yes (MOTHER) Social History Alcohol Use: Yes (OCCASIONALLY) Tobacco Use: No Substance Use: No Allergies-Medications (Allergen,Severity, Reaction): Coded Allergies: tetanus toxoid, adsorbed (Unverified Allergy, Severe, Swelling, 09/08/17) ITCHING pineapple (Unverified Allergy, Intermediate, Itching, 09/08/17) doxycycline (Unverified Adverse Reaction, Mild, SICK TO STOMACH, 09/08/17) Reported Meds & Prescriptions Reported Meds & Active Scripts Active Reported Lisinopril-Hctz 20-25 Mg Tab 1 Tab PO DAILY Review of Systems Except as stated in HPI: all other systems reviewed are Neg Physical Exam Narrative GENERAL: Well-developed well-nourished in mild distress, resting comfortably in bed SKIN: Focused skin assessment warm/dry. HEAD: Atraumatic. Normocephalic. EYES: Pupils equal and round. No scleral icterus. No injection or drainage. ENT: No nasal bleeding or discharge. Mucous membranes pink and moist. NECK: Trachea midline. No JVD. CARDIOVASCULAR: Regular rate and rhythm. No murmur appreciated. RESPIRATORY: No accessory muscle use. Clear to auscultation. Breath sounds equal bilaterally. GASTROINTESTINAL: Abdomen soft, non-tender, nondistended. Hepatic and splenic margins not palpable. MUSCULOSKELETAL: No obvious deformities. No clubbing. No cyanosis. No edema. No chest wall tenderness to palpation NEUROLOGICAL: Awake and alert. No obvious cranial nerve deficits. Motor grossly within normal limits. Normal speech. PSYCHIATRIC: Appropriate mood and affect; insight and judgment normal. Data Data Last Documented VS Vital Signs Date Time Temp Pulse Resp B/P (MAP) Pulse Ox O2 Delivery O2 Flow Rate FiO2 09/08/17 21:49 16 99 Room Air 09/08/17 20:51 90 09/08/17 20:49 98.1 Orders Orders Electrocardiogram (09/08/17 21:03) Complete Blood Count With Diff (09/08/17 21:03) Comprehensive Metabolic Panel (09/08/17 21:03) Magnesium (Mg) (09/08/17 21:03) Prothrombin Time / Inr (Pt) (09/08/17 21:03) Act Partial Throm Time (Ptt) (09/08/17 21:03) Troponin I (09/08/17 21:03) Chest, Single Ap (09/08/17 21:03) Ecg Monitoring (09/08/17 21:03) Bilateral Bp Monitoring (09/08/17 21:03) Iv Access Insert/Monitor (09/08/17 21:03) Oximetry (09/08/17 21:03) Oxygen Administration (09/08/17 21:03) Sodium Chloride 0.9% Flush (Ns Flush) (09/08/17 21:15) Promethazine Inj (Phenergan Inj) (09/08/17 21:15) Morphine Inj (Morphine Inj) (09/08/17 21:15) Activity Bed Rest With Brp (09/08/17 22:45) Vital Signs (Adult) Q4H (09/08/17 22:45) Cardiac Rhythm .As Directed (09/08/17 22:45) Notify Dr: Other .PRN (09/08/17 22:45) Notify Parameters (09/08/17 22:45) Resp Oxygen Nasal Cannula (09/08/17 ) Diet Heart Healthy (09/09/17 Breakfast) Ckmb (Isoenzyme) Profile (09/09/17 00:35) Ckmb (Isoenzyme) Profile (09/09/17 03:35) Troponin I (09/09/17 00:35) Troponin I (09/09/17 03:35) Electrocardiogram (09/09/17 00:35) Electrocardiogram (09/09/17 03:35) ^ Obtain (09/08/17 22:45) Sodium Chloride 0.9% Flush (Ns Flush) (09/08/17 22:45) Acetaminophen (Tylenol) (09/08/17 22:45) Morphine Inj (Morphine Inj) (09/08/17 22:45) Ondansetron Inj (Zofran Inj) (09/08/17 22:45) Eligibility Services Representative / Telemetry ULISES.[id number] (09/08/17 22:45) Admit Order (Ed Use Only) (09/08/17 23:04) Labs Laboratory Tests Test 09/08/17 21:35 White Blood Count 10.0 TH/MM3 Red Blood Count 4.52 MIL/MM3 Hemoglobin 12.6 GM/DL Hematocrit 36.5 % Mean Corpuscular Volume 80.8 FL Mean Corpuscular Hemoglobin 27.8 PG Mean Corpuscular Hemoglobin Concent 34.4 % Red Cell Distribution Width 14.1 % Platelet Count 353 TH/MM3 Mean Platelet Volume 6.8 FL Neutrophils (%) (Auto) 60.6 % Lymphocytes (%) (Auto) 29.1 % Monocytes (%) (Auto) 7.2 % Eosinophils (%) (Auto) 2.4 % Basophils (%) (Auto) 0.7 % Neutrophils # (Auto) 6.0 TH/MM3 Lymphocytes # (Auto) 2.9 TH/MM3 Monocytes # (Auto) 0.7 TH/MM3 Eosinophils # (Auto) 0.2 TH/MM3 Basophils # (Auto) 0.1 TH/MM3 CBC Comment DIFF FINAL Differential Comment Prothrombin Time 11.4 SEC Prothromb Time International Ratio 1.1 RATIO Activated Partial Thromboplast Time 23.1 SEC Blood Urea Nitrogen 11 MG/DL Creatinine 0.95 MG/DL Random Glucose 97 MG/DL Total Protein 8.1 GM/DL Albumin 3.4 GM/DL Calcium Level 9.4 MG/DL Magnesium Level 2.2 MG/DL Alkaline Phosphatase 70 U/L Aspartate Amino Transf (AST/SGOT) 18 U/L Alanine Aminotransferase (ALT/SGPT) 18 U/L Total Bilirubin 0.2 MG/DL Sodium Level 137 MEQ/L Potassium Level 3.6 MEQ/L Chloride Level 101 MEQ/L Carbon Dioxide Level 28.5 MEQ/L Anion Gap 8 MEQ/L Estimat Glomerular Filtration Rate 78 ML/MIN Troponin I LESS THAN 0.02 NG/ML MDM Medical Decision Making Medical Screen Exam Complete: Yes Emergency Medical Condition: Yes Differential Diagnosis STEMI, NSTEMI, angina, angina pectoris Narrative Course 42-year-old female with a history of hypertension, hyperlipidemia presents to emergency department complaining of chest pain via evac that started approximately one half hours ago. States that she was sitting when the pain started. According to EVAC, she was given nitro 3, zofran, and 4 baby aspirin. States this seemed to relieve her pain to a 7 out of 10 and she still feels mildly nauseous. States her chest pain was in the midsternal region radiating to the left chest associated with shortness of breath, nausea. No palliative or provocative factors. Currently she says her pain is 7 out of 10 and she has a mild headache. Says a similar incident occurred approximately 1 year ago but she had a stress test which was normal per patient. Patient does not follow cardiology. Patient denies history of cardiopulmonary issues. Denies history of diabetes or tobacco use. Vital signs stable. EKG demonstrates sinus rhythm without STEMI changes. Review of EMR demonstrates stress test completed January 2016 which was "no ischemia". Patient denies history of heart cardiac cath. Laboratory Tests Test 09/08/17 21:35 White Blood Count 10.0 TH/MM3 Red Blood Count 4.52 MIL/MM3 Hemoglobin 12.6 GM/DL Hematocrit 36.5 % Mean Corpuscular Volume 80.8 FL Mean Corpuscular Hemoglobin 27.8 PG Mean Corpuscular Hemoglobin Concent 34.4 % Red Cell Distribution Width 14.1 % Platelet Count 353 TH/MM3 Mean Platelet Volume 6.8 FL Neutrophils (%) (Auto) 60.6 % Lymphocytes (%) (Auto) 29.1 % Monocytes (%) (Auto) 7.2 % Eosinophils (%) (Auto) 2.4 % Basophils (%) (Auto) 0.7 % Neutrophils # (Auto) 6.0 TH/MM3 Lymphocytes # (Auto) 2.9 TH/MM3 Monocytes # (Auto) 0.7 TH/MM3 Eosinophils # (Auto) 0.2 TH/MM3 Basophils # (Auto) 0.1 TH/MM3 CBC Comment DIFF FINAL Differential Comment Blood Urea Nitrogen 11 MG/DL Creatinine 0.95 MG/DL Random Glucose 97 MG/DL Total Protein 8.1 GM/DL Albumin 3.4 GM/DL Calcium Level 9.4 MG/DL Magnesium Level 2.2 MG/DL Alkaline Phosphatase 70 U/L Aspartate Amino Transf (AST/SGOT) 18 U/L Alanine Aminotransferase (ALT/SGPT) 18 U/L Total Bilirubin 0.2 MG/DL Sodium Level 137 MEQ/L Potassium Level 3.6 MEQ/L Chloride Level 101 MEQ/L Carbon Dioxide Level 28.5 MEQ/L Anion Gap 8 MEQ/L Estimat Glomerular Filtration Rate 78 ML/MIN Troponin I LESS THAN 0.02 NG/ML Initial cardiac enzymes negative. Patient will be admitted to the chest pain center. Chest x-ray without acute process. Pt will be admitted to the Chest Pain Center, r/o ACS Diagnosis Primary Impression: Angina at rest Admitting Information Admitting Physician Requests: Observation Condition: Stable Leslie Mariscal Sep 08, 2017 21:19
--- NOTE | 2017-09-08 21:43 | RADRPT ---
EXAM DATE/TIME: 09/08/2017 21:33 [facility] COMPARISON: CHEST SINGLE AP, January 30, 2016, 1:24. INDICATIONS : Patient complains of chest pain and shortness of breath. MEDICAL HISTORY : None. SURGICAL HISTORY : None. ENCOUNTER: Initial ACUITY: 1 day PAIN SCORE: 5/10 LOCATION: chest FINDINGS: A single view of the chest demonstrates the lungs to be symmetrically aerated without evidence of mas s, infiltrate or effusion. The cardiomediastinal contours are unremarkable. Osseous structures are intact. CONCLUSION: Normal examination for a patient of this age. No significant change has occurred. Jesse Lopez MD on September 08, 2017 at 21:40 Board Certified Radiologist. This report was verified electronically.
[2017-09-08 21:49] VITALS: BP_SYST 140; BP_SYST 143; BP_DIAS 79; BP_DIAS 85; RESP 16; O2SAT 99
[2017-09-08 22:06] LABS: BASOPHIL # 0.1 TH/MM3 (0-0.2); BASOPHIL % 0.7 % (0.0-2.0); EOSINOPHIL # 0.2 TH/MM3 (0-0.4); EOSINOPHIL % 2.4 % (0.0-4.0); HEMATOCRIT 36.5 % (35.0-46.0); HEMOGLOBIN 12.6 GM/DL (11.6-15.3); LYMPH % 29.1 % (9.0-44.0); LYMPHOCYTE # 2.9 TH/MM3 (1.0-4.8); MEAN CELL VOLUME 80.8 FL (80.0-100.0); MEAN CORPUSCULAR HEMOGLOBIN 27.8 PG (27.0-34.0); MEAN CORPUSCULAR HGB CONC 34.4 % (32.0-36.0); MEAN PLATELET VOLUME 6.8 FL (7.0-11.0); MONO % 7.2 % (0.0-8.0); MONOCYTE # 0.7 TH/MM3 (0-0.9); NEUT % 60.6 % (16.0-70.0); PLATELET COUNT 353 TH/MM3 (150-450); RED BLOOD COUNT 4.52 MIL/MM3 (4.00-5.30); RED CELL DISTRIBUTION WIDTH 14.1 % (11.6-17.2)
[2017-09-08 22:11] LABS: ALBUMIN 3.4 GM/DL (3.4-5.0); AST (GOT) 18 U/L (15-37); BICARBONATE 28.5 MEQ/L (21.0-32.0); BLOOD UREA NITROGEN 11 MG/DL (7-18); CALCIUM 9.4 MG/DL (8.5-10.1); CHLORIDE 101 MEQ/L (98-107); CREATININE 0.95 MG/DL (0.50-1.00); GLOMERULAR FILTRATION RATE 78 ML/MIN (>89); GLUCOSE,RANDOM 97 MG/DL (74-106); MAGNESIUM 2.2 MG/DL (1.5-2.5); SODIUM (NA) 137 MEQ/L (136-145)
[2017-09-08 22:14] LABS: ALKALINE PHOSPHATASE 70 U/L (45-117); ALT (GPT) 18 U/L (10-53); TOTAL BILIRUBIN ADULT 0.2 MG/DL (0.2-1.0); TOTAL PROTEIN 8.1 GM/DL (6.4-8.2); TROPONIN I LESS THAN 0.02 NG/ML (0.02-0.05)
[2017-09-08] MEDS ORDERED: ACETAMINOPHEN 500 MG CPLT PO PRN (22:45)
[2017-09-08] MEDS ORDERED: SODIUM CHLORIDE 0.9% FLUSH 10 ML FLUSH IV FLUSH PRN (22:45)
[2017-09-08] MEDS ORDERED: ONDANSETRON HCL 4 MG/2 ML VIAL IV PUSH PRN (22:45)
[2017-09-08] MEDS ORDERED: MORPHINE SULFATE 4 MG/ML INJ IV PUSH PRN (22:45)
[2017-09-08 22:46] LABS: INTERNATIONAL NORMALIZED RATIO 1.1 RATIO; PROTHROMBIN TIME - PATIENT 11.4 SEC (9.8-11.6)
[2017-09-08 23:10] VITALS: BP 134/75; PULSE 75; RESP 14; O2SAT 100
[2017-09-08 23:13] VITALS: O2SAT 98
[2017-09-09 01:06] VITALS: BP 107/76; PULSE 76; RESP 16; TEMP 97.9; O2SAT 97
[2017-09-09 03:52] VITALS: BP 107/67; PULSE 72; RESP 17; TEMP 97.9; O2SAT 94
[2017-09-09 04:00] VITALS: PULSE 73
[2017-09-09 04:44] LABS: TROPONIN I LESS THAN 0.02 NG/ML (0.02-0.05)
[2017-09-09 07:45] VITALS: PULSE 63
[2017-09-09 07:49] LABS: TROPONIN I LESS THAN 0.02 NG/ML (0.02-0.05)
--- NOTE | 2017-09-09 07:55 | HHI.HP ---
HPI Primary Care Physician Jeniffer Moser MD Chief Complaint Chest pain History of Present Illness 42 year old female with history of hypertension presents to ER for further evaluation of chest pain. Onset 8pm. Location left anterior chest with radiation under left breast and left auxiliary area. Characterized as a quick onset of sharp pressure. Severe in severity. Duration one hour. Associated symptoms includes dyspnea, nausea, and x1 nonbloody emesis. No diaphoreses. No known precipitating or relieving factors. Endorses similar pain in the past although not as severe. Currently is chest pain free. Overnight reports developing a sore throat. Reporting all her co-workers are currently sick with cold like symptoms. Review of Systems General: No fatigue,weakness, fever, chills, recent illness, or change in appetite. Has been in her general state of health. HEENT: No COWAN, no vision changes, no dysphasia, developed sore throat overnight. CV: As stated above. No current CP or pressure. No palpitations, intermittent leg pain, or dizziness RESP: No SOB, cough, wheeze, recent URI, or history asthma GI: Nausea and vomiting resolved. No bowel changes, diarrhea, constipation, pain , distention, melena, or blood in the stool. No change in appetite, no unintentional weight gain or weight loss. : No dysuria, urgency, frequency EXT: Occasional dependent lower leg edema resolves with elevation of legs. no paraesthesias MS: No discomfort, recent fall, injury, trauma, or change in ROM NEURO: No change in memory, dizziness, difficulty with balance, LOC, motor/ sensory deficits PSYCH: No anxiety, depression SKIN: No rashes, no concerning lesions Past Family Social History Allergies: Coded Allergies: tetanus toxoid, adsorbed (Unverified Allergy, Severe, Swelling, 09/08/17) ITCHING pineapple (Unverified Allergy, Intermediate, Itching, 09/08/17) doxycycline (Unverified Adverse Reaction, Mild, SICK TO STOMACH, 09/08/17) Past Medical History Hypertension, hyperlipidemia (recently dx, currently encouraged dietary modifications) Past Surgical History Tubal ligation, uterine ablation Reported Medications Reported Meds & Active Scripts Active Reported Lisinopril-Hctz 20-25 Mg Tab 1 Tab PO DAILY Active Ordered Medications Current Medications Medications (Trade) Dose Ordered Sig/Sakshi Route Start Time Stop Time Status Last Admin (NS Flush) 2 ml UNSCH PRN IVF 09/08/17 21:15 (NS Flush) 2 ml UNSCH PRN IV FLUSH 09/08/17 22:45 (Tylenol) 500 mg Q4H PRN PO 09/08/17 22:45 (Morphine Inj) 2 mg Q4H PRN IV PUSH 09/08/17 22:45 (Zofran Inj) 4 mg Q6H PRN IV PUSH 09/08/17 22:45 Family History Noncontributory for early onset cardiovascular disease. Social History No known diabetes or coronary artery disease. Known hypertension. Known hyperlipidemia recently diagnosed and encouraged dietary modifications. Lifelong nonsmoker. Denies any alcohol or illegal drug use. Endorses sedentary lifestyle. Past cardiac testing 01/30/16 Exercise stress test-nonischemic, ambulated 6:12 minutes. Physical Exam Vital Signs Vital Signs Date Time Temp Pulse Resp B/P (MAP) Pulse Ox O2 Delivery O2 Flow Rate FiO2 09/09/17 04:00 73 09/09/17 03:52 97.9 72 17 107/67 (80) 94 09/09/17 01:06 97.9 76 16 107/76 (86) 97 09/09/17 00:17 09/08/17 23:13 98 09/08/17 23:10 75 14 134/75 (94) 100 Room Air 09/08/17 21:49 16 99 Room Air 09/08/17 21:49 100 Room Air 09/08/17 21:49 140/85 (103) 143/79 (100) 09/08/17 20:51 90 09/08/17 20:49 98.1 93 16 140/85 (103) 100 Physical Exam GENERAL: Alert WN, WD, NAD, pleasant, obese female HEAD: NC, AT EYES: Sclera clear, conjunctiva without injection, pupils equal and round ENT: Mucous membranes pink and moist, cobblestoning in pharynx, sinuses nontender with palpation. NECK: Supple, no masses, trachea midline, right tonsilar gland soft, nontender, easily moves with palpation CV: RRR, without murmur, rub, gallop, no JVD, S1-S2 no S3-S4. left and right anterior chest easily reproduces with palpations. RESP: Clear lungs throughout bilateral, no crackles, wheeze, rhonchi, symmetrical chest rise, nonlabored, able to speak in full sentences ABD: Soft, NT, ND, no masses, positive bowel tones EXT: Pulses +24, no dependent edema MS: Normal tone 4 extremities, no obvious deformities, full range of motion NEURO: CN II through CN XII grossly intact, motor strength 5/5, gait WNL PSYCH: A+O 3, pleasant affect, appropriate speech, mood, insight and judgment SKIN: Normal turgor, normal texture, no lesions, no rashes, even hair distribution Laboratory Laboratory Tests Test 09/08/17 21:35 09/09/17 03:51 09/09/17 06:10 White Blood Count 10.0 Red Blood Count 4.52 Hemoglobin 12.6 Hematocrit 36.5 Mean Corpuscular Volume 80.8 Mean Corpuscular Hemoglobin 27.8 Mean Corpuscular Hemoglobin Concent 34.4 Red Cell Distribution Width 14.1 Platelet Count 353 Mean Platelet Volume 6.8 Neutrophils (%) (Auto) 60.6 Lymphocytes (%) (Auto) 29.1 Monocytes (%) (Auto) 7.2 Eosinophils (%) (Auto) 2.4 Basophils (%) (Auto) 0.7 Neutrophils # (Auto) 6.0 Lymphocytes # (Auto) 2.9 Monocytes # (Auto) 0.7 Eosinophils # (Auto) 0.2 Basophils # (Auto) 0.1 CBC Comment DIFF FINAL Differential Comment Prothrombin Time 11.4 Prothromb Time International Ratio 1.1 Activated Partial Thromboplast Time 23.1 Blood Urea Nitrogen 11 Creatinine 0.95 Random Glucose 97 Total Protein 8.1 Albumin 3.4 Calcium Level 9.4 Magnesium Level 2.2 Alkaline Phosphatase 70 Aspartate Amino Transf (AST/SGOT) 18 Alanine Aminotransferase (ALT/SGPT) 18 Total Bilirubin 0.2 Sodium Level 137 Potassium Level 3.6 Chloride Level 101 Carbon Dioxide Level 28.5 Anion Gap 8 Estimat Glomerular Filtration Rate 78 Troponin I LESS THAN 0.02 LESS THAN 0.02 LESS THAN 0.02 Total Creatine Kinase 199 200 Creatine Kinase MB 0.8 Creatine Kinase MB % 0.4 Result Diagram: 09/08/17213409/08/172134 Imaging Last 48 hours Impressions Chest X-Ray 09/08/172102 Signed Impressions: Service Date/Time: Friday, September 08, 2017 21:33 - CONCLUSION: Normal examination for a patient of this age. No significant change has occurred. Jesse Lopez MD Course EKG Normal sinus rhythm, normal axis, no ST or T-segment changes Caprini VTE Risk Assessment Caprini VTE Risk Assessment: No/Low Risk (score <= 1) Caprini Risk Assessment Model Point Value = 1 Point Value = 2 Point Value = 3 Point Value = 5 Age 41-60 Minor surgery BMI > 25 kg/m2 Swollen legs Varicose veins or History of unexplained or recurrent spontaneous Oral contraceptives or hormone replacement Sepsis (< 1 month) Serious lung disease, including pneumonia (< 1 month) Abnormal pulmonary function Acute myocardial infarction Congestive heart failure (< 1 month) History of inflammatory bowel disease Medical patient at bed rest Age 61-74 Arthroscopic surgery Major open surgery (> 45 min) Laparoscopic surgery (> 45 min) Malignancy Confined to bed (> 72 hours) Immobilizing plaster cast Central venous access Age >= 75 History of VTE Family history of VTE Factor V Leiden Prothrombin [id number] Lupus anticoagulant Anticardiolipin antibodies Elevated serum homocysteine Heparin-induced thrombocytopenia Other congenital or acquired thrombophilia Stroke (< 1 month) Elective arthroplasty Hip, pelvis, or leg fracture Acute spinal cord injury (< 1 month) Prophylaxis Regimen Total Risk Factor Score Risk Level Prophylaxis Regimen 0-1 Low Early ambulation 2 Moderate Order ONE of the following: *Sequential Compression Device (SCD) *Heparin 5000 units SQ BID 3-4 Higher Order ONE of the following medications: *Heparin 5000 units SQ TID *Enoxaparin/Lovenox 40 mg SQ daily (WT < 150 kg, CrCl > 30 mL/min) *Enoxaparin/Lovenox 30 mg SQ daily (WT < 150 kg, CrCl > 10-29 mL/min) *Enoxaparin/Lovenox 30 mg SQ BID (WT < 150 kg, CrCl > 30 mL/min) AND/OR *Sequential Compression Device (SCD) 5 or more Highest Order ONE of the following medications: *Heparin 5000 units SQ TID (Preferred with Epidurals) *Enoxaparin/Lovenox 40 mg SQ daily (WT < 150 kg, CrCl > 30 mL/min) *Enoxaparin/Lovenox 30 mg SQ daily (WT < 150 kg, CrCl > 10-29 mL/min) *Enoxaparin/Lovenox 30 mg SQ BID (WT < 150 kg, CrCl > 30 mL/min) AND *Sequential Compression Device (SCD) Assessment and Plan Assessment and Plan #1 Atypical chest pain-admitted chest pain center. Ruled out and cardiac enzymes, and monitored overnight. Seen and evaluated by Dr. Ronnie Christine. Proceed with exercise stress test in a.m. If unremarkable, plan to discharge home with follow-up with PCP. Patient agreeable plan of care. #2 Hypertension-continue lisinopril/HCTZ, encouraged weight loss, increasing daily activity, and mindfulness of sodium intake. Verbalized understanding. #3 Viral syndrome-possible beginning of viral syndrome. Encourage OTC symptoms relief including Flonase or Nasacort nasal sprays and over the counter allergy medications. Drink plenty of fluids and get plenty of rest. Follow up with PCP if symptoms become worse or do not improve within 10-14 days. Sheree Nagel Sep 09, 2017 07:55
[2017-09-09 09:28] VITALS: BP 119/71; PULSE 74; RESP 18; TEMP 98.5; O2SAT 100
[2017-09-09] MEDS ORDERED: NON-FORMULARY DRUG (Lisinopril-Hctz 1 TAB) PO SCH (11:00)
--- NOTE | 2017-09-09 11:19 | HHI.DCPOC ---
Discharge Care Plan Diagnosis: (1) Atypical chest pain (2) Viral syndrome Goals to Promote Your Health * To prevent worsening of your condition and complications * To maintain your health at the optimal level Directions to Meet Your Goals Take your medications as prescribed Follow your dietary instruction Follow activity as directed Keep your appointments as scheduled Take your immunizations and boosters as scheduled If your symptoms worsen call your PCP, if no PCP go to Urgent Care Center or Emergency Room Smoking is Dangerous to Your Health. Avoid second hand smoke Call the 24-hour hour crisis hotline for domestic abuse at Sheree Nagel Sep 09, 2017 11:19
[2017-09-09] MEDS ORDERED: LISINOPRIL 20 MG TAB PO SCH (12:20)
[2017-09-09] MEDS ORDERED: HYDROCHLOROTHIAZIDE 25 MG TAB PO SCH (12:21)
[2017-09-09 12:26] VITALS: BP 132/80; PULSE 80; RESP 18; TEMP 98.6; O2SAT 100
--- NOTE | 2017-09-10 16:22 | EKG ---
Date Performed: 09/09/2017 Time Performed: 03:49:20 PTAGE: 42 years EKG: Sinus rhythm NORMAL ECG PREVIOUS TRACING : 09/09/2017 01.11 Since previous tracing, no significant change noted DOCTOR: Ronnie Christine Interpretating Date/Time 09/10/2017 16:20:12
--- NOTE | 2017-09-10 16:23 | EKG ---
Date Performed: 09/09/2017 Time Performed: 01:11:19 PTAGE: 42 years EKG: Sinus rhythm NONSPECIFIC T-WAVE ABNORMALITY BORDERLINE ECG PREVIOUS TRACING : 09/08/2017 21.27 Since previous tracing, no significant change noted DOCTOR: Ronnie Christine Interpretating Date/Time 09/10/2017 16:21:30
--- NOTE | 2017-09-10 16:24 | EKG ---
Date Performed: 09/08/2017 Time Performed: 21:27:01 PTAGE: 42 years EKG: Sinus rhythm NORMAL ECG PREVIOUS TRACING : 03/22/2017 02.31 Since previous tracing, no significant change noted DOCTOR: Ronnie Christine Interpretating Date/Time 09/10/2017 16:22:32
--- NOTE | 2017-09-10 16:30 | TR ---
Date Performed: 09/09/2017 Time Performed: 10:33:00 DOCTOR: Ronnie Christine DRUG LIST: CLINICAL HISTORY: REASON FOR TEST: REASON FOR ENDING: OBSERVATION: CONCLUSION: Ernesto protocol completed. Stopped sec to exceeding target heart rate and leg fatigue . Maximum ST=887 Target HR Achieved=88.0% Maximum JU=163/80 Total Exercise Time=5:04. No reprod chest pain. No ectopy. No st t segment changes to sugg ischemia. Fair exercise tolerance. Normal bp respon se. Recovery quick and unremarkable. COMMENTS: Lexiscan stress test was performed under standard four minute protocol. Radionuclide was injected one minute prior to ending the test. No electrocardiographic abormalities were present t o suggest ischemia. Nuclear imaging and interpretation are pending.
== END 2017-09-09 18:32 | disposition home or self-care (01) ==
LOC: NEPC 20:44 → NEDA 23:06 → NEPGCP 09-09 00:01
PROVIDERS: ADMIT Internal Medicine Cardiovascular Disease; ATTEND Internal Medicine Cardiovascular Disease
DX: R07.89 Other chest pain (principal); B34.9 Viral infection, unspecified; I10 Essential (primary) hypertension; R94.31 Abnormal electrocardiogram [ECG] [EKG]; E78.5 Hyperlipidemia, unspecified; E78.00 Pure hypercholesterolemia, unspecified; Z87.442 Personal history of urinary calculi
CPT/HCPCS: 71045; 80053; 82550; 82552; 83735; 84484; 85025; 85610; 85730; 93005; 93017; 96374; 96375; 99285; G0378; J2270; J2550

== ENCOUNTER 2017-09-11 00:01 | Emergency (ER) | payer BC ==
[~2017-09-11] VITALS: Ht 162.6 cm; Wt 92.5 kg
[2017-09-11 00:13] VITALS: BP 133/90; PULSE 94; RESP 18; TEMP 98.1; O2SAT 100
--- NOTE | 2017-09-11 00:56 | PD ---
HPI Chief Complaint: ENT Complaint Time Seen by Provider: 00:48 Travel History International Travel<30 days: No Contact w/Intl Traveler<30days: No Traveled to known affect area: No History of Present Illness HPI The patient is a 42-year-old female that complains of a sore, swollen throat for the last 2 days. She has difficulty swallowing. She has bilateral ear pain but not severe ear pain. This ear pain is like going up a mountain. She denies any fever. PFSH Past Medical History Hx Anticoagulant Therapy: No Anemia: Yes Blood Disorders: No Anxiety: Yes Depression: No Heart Rhythm Problems: No Cancer: No Cardiovascular Problems: Yes High Cholesterol: Yes Chest Pain: Yes (STRESSTEST 2012: NEGATIVE) Congestive Heart Failure: No Diabetes: No Diminished Hearing: No Endocrine: No Gastrointestinal Disorders: Yes Genitourinary: Yes Hepatitis: No Hiatal Hernia: No Heparin Induced Thrombocytopen: No Hypertension: Yes Immune Disorder: No Implanted Vascular Access Dvce: No Kidney Stones: Yes Musculoskeletal: Yes Neurologic: Yes Psychiatric: Yes Respiratory: No Immunizations Current: Yes Migraines: Yes Thyroid Disease: No PNEUMOCCOCAL Vaccine (Year): 2 ?: Not : 3 Para: 3 Miscarriage: 0 : 0 Ovarian Cysts: Yes () Tubal Ligation: Yes Past Surgical History Abdominal Surgery: No AICD: No Body Medical Devices: NONE Cardiac Surgery: No Ear Surgery: No Endocrine Surgery: No Eye Surgery: No Genitourinary Surgery: No Gynecologic Surgery: Yes (TUBAL LIGATION, UTERINE ABLATION) Joint Replacement: No Neurologic Surgery: No Oral Surgery: No Pacemaker: No Thoracic Surgery: No Other Surgery: Yes (RIGHT WRIST SX) Family History Family Hypercholesterolemia: Yes (MOTHER) Social History Alcohol Use: Yes (OCCASIONALLY) Tobacco Use: No Substance Use: No Allergies-Medications (Allergen,Severity, Reaction): Coded Allergies: tetanus toxoid, adsorbed (Unverified Allergy, Severe, Swelling, 09/11/17) ITCHING pineapple (Unverified Allergy, Intermediate, Itching, 09/11/17) doxycycline (Unverified Adverse Reaction, Mild, SICK TO STOMACH, 09/11/17) Reported Meds & Prescriptions Reported Meds & Active Scripts Active Prednisone 20 Mg Tab 20 Mg PO BID 5 Days Reported Lisinopril-Hctz 20-25 Mg Tab 1 Tab PO DAILY Review of Systems Except as stated in HPI: all other systems reviewed are Neg Physical Exam Narrative GENERAL: The patient is alert, oriented 3 in slight apparent distress with her sore throat. Her vital signs show blood pressure 133/90 but are otherwise normal. SKIN: Focused skin assessment warm/dry. HEAD: Atraumatic. Normocephalic. EYES: Pupils equal and round. No scleral icterus. No injection or drainage. ENT: No nasal bleeding or discharge. Mucous membranes pink and moist. The tympanic membranes are clear and the throat shows erythema without exudate or abscess. NECK: Trachea midline. No JVD. CARDIOVASCULAR: Regular rate and rhythm. No murmur appreciated. RESPIRATORY: No accessory muscle use. Clear to auscultation. Breath sounds equal bilaterally. GASTROINTESTINAL: Abdomen soft, non-tender, nondistended. Hepatic and splenic margins not palpable. MUSCULOSKELETAL: No obvious deformities. No clubbing. No cyanosis. No edema. NEUROLOGICAL: Awake and alert. No obvious cranial nerve deficits. Motor grossly within normal limits. Normal speech. PSYCHIATRIC: Appropriate mood and affect; insight and judgment normal. Data Data Last Documented VS Vital Signs Date Time Temp Pulse Resp B/P (MAP) Pulse Ox O2 Delivery O2 Flow Rate FiO2 09/11/17 00:13 98.1 94 18 133/90 (104) 100 Orders Orders Group A Rapid Strep Screen (09/11/17 00:48) Monoscreen (09/11/17 00:48) Strep Culture (Group A) (09/11/17 01:13) Prednisone (Deltasone) (09/11/17 02:30) Labs Laboratory Tests Test 09/11/17 00:48 [facility] Medical Decision Making Medical Screen Exam Complete: Yes Emergency Medical Condition: Yes Medical Record Reviewed: Yes Interpretation(s) The strep screen is negative for group A strep antigen. Differential Diagnosis Strep pharyngitis, viral pharyngitis, mononucleosis Narrative Course The patient likely has a viral pharyngitis. She'll be given 5 days of prednisone 20 mg twice daily. She is to follow-up with her primary care physician next week. She should use warm saltwater gargles. Procedures EKG Prior to Arrival: Yes EKG Not Completed: EKG Not Medically Necessary Diagnosis Primary Impression: Viral pharyngitis Additional Instructions: Use warm saltwater gargles and follow-up with her primary care physician next week. The prednisone is one tablet twice daily for 5 days. Med/Other Pt SpecificInfo: Prescription(s) given Scripts Prednisone (Prednisone) 20 Mg Tab 20 MG PO BID for 5 Days, #10 TAB 0 Refills Prov: Man Virgen MD 09/11/17 Disposition: 01 DISCHARGE HOME Condition: Stable Man Virgen MD Sep 11, 2017 00:56
[2017-09-11] MEDS ORDERED: PRED20 PO (02:19)
[2017-09-11 02:27] VITALS: BP 136/92; PULSE 92; RESP 18; O2SAT 100
[2017-09-11] MEDS ORDERED: predniSONE 20 MG TAB PO ONE (02:30)
[2017-09-11 02:43] LABS: MONOSCREEN NEG (NEG)
== END 2017-09-11 02:41 | disposition home or self-care (01) ==
LOC: PHED 00:01
DX: J02.9 Acute pharyngitis, unspecified (principal); D64.9 Anemia, unspecified; E78.00 Pure hypercholesterolemia, unspecified; I10 Essential (primary) hypertension; Z88.1 Allergy status to other antibiotic agents; Z88.7 Allergy status to serum and vaccine; Z91.048 Other nonmedicinal substance allergy status
CPT/HCPCS: 86308; 87081; 87880; 99283; J7512

== ENCOUNTER 2017-12-28 20:18 | Emergency (ER) | payer BC ==
[~2017-12-28] VITALS: Ht 162.6 cm; Wt 94.1 kg
[~2017-12-28 20:18] MED LIST changes: +PRED20 PO
[2017-12-28 20:27] VITALS: BP 127/77; PULSE 101; RESP 16; TEMP 98.6; O2SAT 100
[2017-12-28 20:50] VITALS: BP 113/68; PULSE 87; RESP 18; O2SAT 98
[2017-12-28 20:52] LABS: AUTOMATED NEUTROPHIL # 5.2 TH/MM3 (1.8-7.7); BASOPHIL # 0.2 TH/MM3 (0-0.2); BASOPHIL % 2.4 % (0.0-2.0); EOSINOPHIL # 0.2 TH/MM3 (0-0.4); EOSINOPHIL % 2.5 % (0.0-4.0); HEMATOCRIT 38.5 % (35.0-46.0); HEMOGLOBIN 12.6 GM/DL (11.6-15.3); LYMPH % 34.5 % (9.0-44.0); LYMPHOCYTE # 3.2 TH/MM3 (1.0-4.8); MEAN CELL VOLUME 79.7 FL (80.0-100.0); MEAN CORPUSCULAR HEMOGLOBIN 26.1 PG (27.0-34.0); MEAN CORPUSCULAR HGB CONC 32.7 % (32.0-36.0); MEAN PLATELET VOLUME 7.1 FL (7.0-11.0); MONO % 5.9 % (0.0-8.0); MONOCYTE # 0.5 TH/MM3 (0-0.9); NEUT % 54.7 % (16.0-70.0); PLATELET COUNT 338 TH/MM3 (150-450); RED BLOOD COUNT 4.82 MIL/MM3 (4.00-5.30); RED CELL DISTRIBUTION WIDTH 12.2 % (11.6-17.2); WHITE BLOOD COUNT 9.3 TH/MM3 (4.0-11.0)
[2017-12-28 20:59] LABS: CHLORIDE 99 MEQ/L (98-107); SODIUM (NA) 135 MEQ/L (136-145)
[2017-12-28 21:02] LABS: CALCIUM 8.9 MG/DL (8.5-10.1)
[2017-12-28 21:03] LABS: ALBUMIN 3.7 GM/DL (3.4-5.0); BICARBONATE 28.1 MEQ/L (21.0-32.0); BLOOD UREA NITROGEN 18 MG/DL (7-18); GLUCOSE,RANDOM 113 MG/DL (74-106)
[2017-12-28 21:06] LABS: ALT (GPT) 19 U/L (10-53); AST (GOT) 12 U/L (15-37); GLOMERULAR FILTRATION RATE 66 ML/MIN (>89)
[2017-12-28 21:08] LABS: TOTAL BILIRUBIN ADULT 0.2 MG/DL (0.2-1.0); TOTAL PROTEIN 8.9 GM/DL (6.4-8.2)
[2017-12-28 21:09] LABS: ALKALINE PHOSPHATASE 80 U/L (45-117)
[2017-12-28 21:11] LABS: TROPONIN I LESS THAN 0.02 NG/ML (0.02-0.05)
--- NOTE | 2017-12-28 21:14 | PD ---
HPI Chief Complaint: Chest Pain Time Seen by Provider: 20:35 Travel History International Travel<30 days: No Contact w/Intl Traveler<30days: No Traveled to known affect area: No History of Present Illness HPI This is a 42-year-old female who presents to the emergency department with lightheadedness and dizziness that started this morning when she got to work. 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 When she got to work she felt very lightheaded and dizzy like she was going to pass out, constant, moderate severity. The primary care doctor took her blood pressure and it was in the 80s systolic. She drank some sweet tea and it came up to the 90s systolic. She continued to feel dizzy and developed a little bit of left- sided chest tightness. Her doctor told her to go get some blood work but all the labs were closed by the time she went since she came to the emergency department. She had a normal stress test in September of this year. She took lisinopril 20 mg this morning. PFSH Past Medical History Hx Anticoagulant Therapy: No Anemia: Yes Blood Disorders: No Anxiety: Yes Depression: No Heart Rhythm Problems: No Cancer: No Cardiovascular Problems: Yes High Cholesterol: Yes Chest Pain: Yes (STRESSTEST 2012: NEGATIVE) Congestive Heart Failure: No Diabetes: No Diminished Hearing: No Endocrine: No Gastrointestinal Disorders: Yes Genitourinary: Yes Hepatitis: No Hiatal Hernia: No Heparin Induced Thrombocytopen: No Hypertension: Yes Immune Disorder: No Implanted Vascular Access Dvce: No Kidney Stones: Yes Medical other: Yes (Vertigo) Musculoskeletal: Yes Neurologic: Yes Psychiatric: Yes Respiratory: No Immunizations Current: Yes Migraines: Yes Thyroid Disease: No Tetanus Vaccination: < 5 Years Influenza Vaccination: Yes PNEUMOCCOCAL Vaccine (Year): 2 ?: Not LMP: 12/28/17 : 3 Para: 3 Miscarriage: 0 : 0 Ovarian Cysts: Yes () Tubal Ligation: Yes Past Surgical History Abdominal Surgery: No AICD: No Body Medical Devices: NONE Cardiac Surgery: No Ear Surgery: No Endocrine Surgery: No Eye Surgery: No Genitourinary Surgery: No Gynecologic Surgery: Yes (TUBAL LIGATION, UTERINE ABLATION) Joint Replacement: No Neurologic Surgery: No Oral Surgery: No Pacemaker: No Thoracic Surgery: No Other Surgery: Yes (RIGHT WRIST SX) Family History Family Hypercholesterolemia: Yes (MOTHER) Social History Alcohol Use: Yes (OCCASIONALLY) Tobacco Use: No Substance Use: No Allergies-Medications (Allergen,Severity, Reaction): Coded Allergies: tetanus toxoid, adsorbed (Unverified Allergy, Severe, Swelling, 12/28/17) ITCHING pineapple (Unverified Allergy, Intermediate, Itching, 12/28/17) doxycycline (Unverified Adverse Reaction, Mild, SICK TO STOMACH, 12/28/17) Reported Meds & Prescriptions Reported Meds & Active Scripts Active Prednisone 20 Mg Tab 20 Mg PO BID 5 Days Reported Lisinopril-Hctz 20-25 Mg Tab 1 Tab PO DAILY Review of Systems Except as stated in HPI: all other systems reviewed are Neg Physical Exam Narrative GENERAL:Well appearing, no acute distress SKIN: Focused skin assessment warm and dry. HEAD: Atraumatic. Normocephalic. EYES: Pupils equal and round. No injection or drainage. ENT: Moist mucous membranes NECK: Trachea midline. CARDIOVASCULAR: Regular rate and rhythm. No murmur appreciated. RESPIRATORY: Clear to auscultation. Breath sounds equal bilaterally. GASTROINTESTINAL: Abdomen soft, non-tender, nondistended. MUSCULOSKELETAL: No obvious deformities. NEUROLOGICAL: Awake and alert. No obvious cranial nerve deficits. Moving all extremities. PSYCHIATRIC: Appropriate mood and affect; insight and judgment normal. Data Data Last Documented VS Vital Signs Date Time Temp Pulse Resp B/P (MAP) Pulse Ox O2 Delivery O2 Flow Rate FiO2 12/28/17 22:13 87 20 127/84 (98) 99 12/28/17 20:50 Room Air 12/28/17 20:27 98.6 Orders Orders Complete Blood Count With Diff (12/28/17 20:37) Comprehensive Metabolic Panel (12/28/17 20:37) Troponin I (12/28/17 20:37) Electrocardiogram (12/28/17 ) Orthostatic Vital Signs (12/28/17 21:10) Sodium Chlor 0.9% 1000 Ml Inj (Ns 1000 M (12/28/17 21:15) Potassium Chloride Eff (K-Lyte Cl Eff) (12/28/17 21:15) Ct Pulmonary Angiogram (12/28/17 ) Promethazine Inj (Phenergan Inj) (12/28/17 22:00) Urinalysis - C+S If Indicated (12/28/17 21:51) Iohexol 350 Inj (Omnipaque 350 Inj) (12/28/17 22:37) Labs Laboratory Tests Test 12/28/17 20:45 12/28/17 22:00 White Blood Count 9.3 TH/MM3 Red Blood Count 4.82 MIL/MM3 Hemoglobin 12.6 GM/DL Hematocrit 38.5 % Mean Corpuscular Volume 79.7 FL Mean Corpuscular Hemoglobin 26.1 PG Mean Corpuscular Hemoglobin Concent 32.7 % Red Cell Distribution Width 12.2 % Platelet Count 338 TH/MM3 Mean Platelet Volume 7.1 FL Neutrophils (%) (Auto) 54.7 % Lymphocytes (%) (Auto) 34.5 % Monocytes (%) (Auto) 5.9 % Eosinophils (%) (Auto) 2.5 % Basophils (%) (Auto) 2.4 % Neutrophils # (Auto) 5.2 TH/MM3 Lymphocytes # (Auto) 3.2 TH/MM3 Monocytes # (Auto) 0.5 TH/MM3 Eosinophils # (Auto) 0.2 TH/MM3 Basophils # (Auto) 0.2 TH/MM3 CBC Comment DIFF FINAL Differential Comment Blood Urea Nitrogen 18 MG/DL Creatinine 1.10 MG/DL Random Glucose 113 MG/DL Total Protein 8.9 GM/DL Albumin 3.7 GM/DL Calcium Level 8.9 MG/DL Alkaline Phosphatase 80 U/L Aspartate Amino Transf (AST/SGOT) 12 U/L Alanine Aminotransferase (ALT/SGPT) 19 U/L Total Bilirubin 0.2 MG/DL Sodium Level 135 MEQ/L Potassium Level 3.1 MEQ/L Chloride Level 99 MEQ/L Carbon Dioxide Level 28.1 MEQ/L Anion Gap 8 MEQ/L Estimat Glomerular Filtration Rate 66 ML/MIN Troponin I LESS THAN 0.02 NG/ML Urine Color YELLOW Urine Turbidity CLEAR Urine pH 5.5 Urine Specific [place] 1.025 Urine Protein NEG mg/dL Urine Glucose (UA) NEG mg/dL Urine Ketones NEG mg/dL Urine Occult Blood LARGE Urine Nitrite NEG Urine Bilirubin NEG Urine Urobilinogen 0.2 MG/DL Urine Leukocyte Esterase NEG Urine RBC 3-5 /hpf Urine WBC 0-2 /hpf Urine Squamous Epithelial Cells 6-8 /hpf Urine Bacteria NONE /hpf Microscopic Urinalysis Comment CULT NOT INDICATED MDM Medical Decision Making Medical Screen Exam Complete: Yes Emergency Medical Condition: Yes Interpretation(s) ekg: nsr, no st changes no leukocytosis mild hypokalemia troponin negative urinalysis: no infection Last [address] Angiography 12/28/17 0000 Signed Impressions: CONCLUSION: 1. Negative for central pulmonary emboli. Differential Diagnosis orthostatic hypotension, pulmonary embolism, myocardial infarction, dehydration , arrhythmia Narrative Course This is a 42-year-old female who presents to the emergency department with low blood pressure and near syncope throughout the day in the setting of taking a new herbal supplement. Here in the emergency department she has a normal blood pressure but is orthostatic. She is placed on a monitor and an IV was established. Labs were obtained which demonstrate mild hyponatremia and hypokalemia and a normal troponin. When the patient stood up the nurse reported that she became hypoxic. For this reason I obtained a CT pulmonary angiogram which was reassuring. I think the patient can safely be discharged and I encouraged her to hydrate and hold her blood pressure medications for the next 3 days. Diagnosis Primary Impression: Orthostatic hypotension Patient Instructions: General Instructions Additional Instructions: If you develop severe chest pain, shortness of breath, sweating, lightheadedness , dizziness or difficulty breathing return to the emergency department immediately. Followup with your primary care physician in 2-3 days if your symptoms are not resolved. Med/Other Pt SpecificInfo: Existing Med Changed (Blood pressure medication held) Disposition: 01 DISCHARGE HOME Condition: Stable Grecia Baird MD December 28, 2017 21:14
[2017-12-28] MEDS ORDERED: POTASSIUM CHLORIDE 25 MEQ EFFERVESCENT TAB PO ONE (21:15)
[2017-12-28] MEDS ORDERED: SODIUM CHLOR 0.9% 1000 ML INJ 1,000 ML IV ONE (21:15)
[2017-12-28 21:40] VITALS: BP_SYST 106; BP_SYST 112; BP_SYST 122; BP_DIAS 76; BP_DIAS 77; BP_DIAS 81; RESP 18
[2017-12-28] MEDS ORDERED: PROMETHAZINE INJ 25 MG/ML VIAL IM ONE (22:00)
[2017-12-28 22:08] LABS: BILIRUBIN, URINE NEG (NEG); BLOOD, URINE LARGE (NEG); GLUCOSE,URINE NEG (NEG); KETONE, URINE NEG (NEG); NITRITE,URINE NEG (NEG); PH, URINE 5.5 (5.0-8.5); URINE COLOR YELLOW (YELLW/STRAW); URINE LEUKOCYTE ESTERASE NEG (NEG)
[2017-12-28 22:13] VITALS: BP 127/84; PULSE 87; RESP 20; O2SAT 99
[2017-12-28 22:14] LABS: WBC, URINE 0-2 /hpf (0-5)
[2017-12-28] MEDS ORDERED: IOHEXOL 350 MG/ML 10 ML VIAL (for RAD DIAG) IVCONTRAST ONE (22:37)
--- NOTE | 2017-12-28 22:43 | RADRPT ---
EXAM DATE: 12/28/2017 10:36 PM EDT AGE/SEX: 42 years / Female INDICATIONS: Chest pain. CLINICAL DATA: This is the patient's initial encounter. Patient reports that signs and symptoms have been present for 1 day and indicates a pain score of 7/10. MEDICAL/SURGICAL HISTORY: Hypertension. None. RADIATION DOSE: 19.31 CTDI (mGy) COMPARISON: No prior [place] exams available for comparison. TECHNIQUE: Volumetric scanning was performed using a multi-row detector CT scanner during bolus infu angel of 75 ml Omnipaque 350 (iohexol) nonionic water-soluble contrast as a single exam dose. The zaheer a was post processed with a variety of visualization algorithms including full volume maximum intensi ty projection and sliding thin slab reformation. Using automated exposure control and adjustment of the mA and/or kV according to patient size, radiation dose was kept as low as reasonably achievable t o obtain optimal diagnostic quality images. FINDINGS: Pulmonary Arteries: No filling defects are seen in the pulmonary arteries out to the subsegmental ve ssels. The left and right pulmonary arteries are normal in diameter. Lung: No infiltrates seen. Effusion: None. Mediastinum: No evidence of mediastinal or hilar adenopathy. Other: The axilla is unremarkable. CONCLUSION: 1. Negative for central pulmonary emboli. Electronically signed by: Brijesh Mcmanus MD 12/28/2017 10:42 PM EDT
[2017-12-28 23:15] VITALS: BP 127/84
--- NOTE | 2017-12-29 14:08 | EKG ---
Date Performed: 12/28/2017 Time Performed: 20:39:29 PTAGE: 42 years EKG: Sinus rhythm NORMAL ECG PREVIOUS TRACING : 09/09/2017 03.49 DOCTOR: Abiel Velasquez Interpretating Date/Time 12/29/2017 14:05:18
== END 2017-12-28 23:22 | disposition home or self-care (01) ==
LOC: PHED 20:18
DX: I95.1 Orthostatic hypotension (principal); E87.6 Hypokalemia; R07.89 Other chest pain; D64.9 Anemia, unspecified; F41.9 Anxiety disorder, unspecified; E78.00 Pure hypercholesterolemia, unspecified; I10 Essential (primary) hypertension; Z87.442 Personal history of urinary calculi; Z79.899 Other long term (current) drug therapy
CPT/HCPCS: 71275; 80053; 81001; 84484; 85025; 93005; 96360; 96361; 96372; 99285; J2550; J7030; Q9967